=== PATIENT | male | born 1945 | race Two or more races ===

== ENCOUNTER 2024-03-13 14:09 | Outpatient (REF) | payer MEDICARE, SELFPAY ==
[2024-03-13 22:24] LABS: Abs Immature Grans 0.01 10^3/uL (0.0-0.06); Absolute Basophil Count 0.04 10^3/uL (0.0-0.2); Absolute Eosinophil Count 0.26 10^3/uL (0.0-0.7); Absolute Neutrophil Count 4.02 10^3/uL (1.2-6.7); Basophils % 0.6 %; Eosinophils % 4.1 %; HCT 38.9 % (40.0-50.0); HGB 12.9 g/dL (13.5-17.5); Immature Grans % 0.2 %; Lymphocytes % 23.7 %; MCH 31.1 pg (27.0-33.0); MCHC 33.2 % (32.0-36.0); MCV 94 fL (80-95); MPV 10.7 fL (8.0-11.0); Monocytes % 7.9 %; Neutrophils % 63.5 %; Platelet Count 169 10^3/uL (130-400); RBC 4.15 10^6/uL (4.36-5.78); RDW 13.6 % (11.8-14.1); RDW-SD 46.3 fL; WBC 6.33 10^3/uL (4.4-10.8)
[2024-03-13 22:55] LABS: ALT 36 U/L (16-63); AST 33 U/L (15-37); Albumin 3.7 g/dL (3.4-5.0); Alkaline Phosphatase 90 U/L (46-116); Anion Gap 6.1 mmol/L (3-11); BUN 20 mg/dL (7-18); Bilirubin, Total 0.65 mg/dL (0.2-1.0); CO2 29.9 mmol/L (21.0-32.0); CREATININE 0.8 mg/dL (0.70-1.30); Calculated LDL 71 mg/dL (<100); Chloride 107 mmol/L (98-107); Cholesterol 147 mg/dL (<200); Estimated GFR 90.02 (mL/min/1.73m2); Ferritin 81 ng/mL (26-388); Glucose 88 mg/dL (74-106); HDL Cholesterol 70 mg/dL (40-60); Potassium 4.2 mmol/L (3.5-5.1); Sodium 143 mmol/L (136-145); TSH (W/Ref FT4) 5.43 uIU/mL (0.36-3.74); Total Protein 7.3 g/dL (6.4-8.2); Triglyceride 30 mg/dL (<150)
[2024-03-13 23:14] LABS: FREE T4 0.91 ng/dL (0.76-1.46)
== END 2024-03-13 14:10 | disposition home or self-care (01) ==
LOC: NCHCN 14:09
PROVIDERS: Visit Provider Family Medicine
DX: I48.91 Unspecified atrial fibrillation
CPT/HCPCS: 80053; 80061; 82728; 84439; 84443; 85025

== ENCOUNTER 2024-03-21 15:43 | Outpatient (REF) | payer MEDICARE, SELFPAY ==
[2024-03-21 21:48] LABS: Anion Gap 8.8 mmol/L (3-11); BUN 28 mg/dL (7-18); CO2 31.2 mmol/L (21.0-32.0); Calcium 9.1 mg/dL (8.5-10.1); Chloride 107 mmol/L (98-107); Estimated GFR 76.56 (mL/min/1.73m2); Glucose 121 mg/dL (74-106); NT-proBNP 1535 pg/mL (<300); Potassium 4.1 mmol/L (3.5-5.1); Sodium 147 mmol/L (136-145)
== END 2024-03-21 15:44 | disposition home or self-care (01) ==
LOC: NCHCN 15:43
PROVIDERS: Visit Provider Family Medicine
DX: I50.9 Heart failure, unspecified (principal)
CPT/HCPCS: 80048; 83880

== ENCOUNTER 2024-09-23 15:49 | Outpatient (REF) | payer MEDICARE, SELFPAY ==
[2024-09-23 18:14] LABS: HGB 14.2 g/dL (13.5-17.5); WBC 6.62 10^3/uL (4.4-10.8)
[2024-09-23 18:15] LABS: Abs Immature Grans 0.01 10^3/uL (0.0-0.06); Absolute Basophil Count 0.04 10^3/uL (0.0-0.2); Absolute Eosinophil Count 0.25 10^3/uL (0.0-0.7); Absolute Lymphocyte Count 2.33 10^3/uL (1.2-3.4); Absolute Monocyte Count 0.53 10^3/uL (0.1-0.8); Absolute Neutrophil Count 3.46 10^3/uL (1.2-6.7); Basophils % 0.6 %; Eosinophils % 3.8 %; HCT 42.4 % (40.0-50.0); Immature Grans % 0.2 %; Lymphocytes % 35.2 %; MCH 31.6 pg (27.0-33.0); MCHC 33.5 % (32.0-36.0); MCV 94 fL (80-95); MPV 10.3 fL (8.0-11.0); Neutrophils % 52.2 %; Platelet Count 234 10^3/uL (130-400); RDW 12.6 % (11.8-14.1); RDW-SD 43.8 fL
[2024-09-23 18:25] LABS: ALT 33 U/L (16-63); AST 30 U/L (15-37); Albumin 3.9 g/dL (3.4-5.0); Alkaline Phosphatase 90 U/L (46-116); Bilirubin, Direct 0.2 mg/dL (0.0-0.2); Bilirubin, Total 0.5 mg/dL (0.2-1.0); Total Protein 7.6 g/dL (6.4-8.2)
== END 2024-09-23 15:50 | disposition home or self-care (01) ==
LOC: LBN 15:49
PROVIDERS: PCP Family Medicine; Visit Provider Dermatology
DX: Z79.899 Other long term (current) drug therapy (principal)
CPT/HCPCS: 80076; 85025

== ENCOUNTER 2025-04-17 13:13 | Outpatient (REF) | payer MEDICARE, SELFPAY ==
[2025-04-17 21:11] LABS: Abs Immature Grans 0.02 10^3/uL (0.0-0.06); HCT 43.5 % (40.0-50.0); HGB 14.2 g/dL (13.5-17.5); Immature Grans % 0.3 %; MCH 30.9 pg (27.0-33.0); MCHC 32.6 % (32.0-36.0); MCV 95 fL (80-95); MPV 10.0 fL (8.0-11.0); Platelet Count 239 10^3/uL (130-400); RBC 4.59 10^6/uL (4.36-5.78); RDW 12.9 % (11.8-14.1); RDW-SD 45.0 fL; WBC 7.15 10^3/uL (4.4-10.8)
[2025-04-17 21:30] LABS: TSH (W/Ref FT4) 3.26 uIU/mL (0.55-4.78)
[2025-04-17 21:36] LABS: ALT 23 U/L (10-49); AST 29 U/L (<34); Albumin 4.3 g/dL (3.2-5.0); Alkaline Phosphatase 88 U/L (46-116); Anion Gap 5.7 mmol/L (3-11); BUN 14 mg/dL (9-23); Bilirubin, Total 0.90 mg/dL (0.2-1.2); CO2 31.3 mmol/L (20.0-31.0); Calcium 9.3 mg/dL (8.3-10.6); Chloride 104 mmol/L (98-107); Glucose 95 mg/dL (74-106); Potassium 4.3 mmol/L (3.5-5.1); Sodium 141 mmol/L (136-145); Total Protein 7.6 g/dL (5.7-8.2)
== END 2025-04-17 13:14 | disposition home or self-care (01) ==
LOC: NCHCN 13:13
PROVIDERS: PCP Family Medicine; Visit Provider Family Medicine
DX: K59.00 Constipation, unspecified (principal)
CPT/HCPCS: 80053; 84443; 85025